=== PATIENT | female | born 1960 | race Caucasian/White ===

== ENCOUNTER → 2021-12-06 | Outpatient (CLI) | payer OTHER, SELFPAY ==
--- NOTE | 2021-12-06 15:37 | VDLE_ITS ---
Reason For Study: Pain LLE RIGHT LEFT CFV is compressible, spontaneous, phasic, GSV is normal. competent and demonstrates normal CFV is compressible, spontaneous, phasic, augmentation. competent, and demonstrates normal Procedure augmentation. This is a venous duplex using B-mode, color FV is compressible, spontaneous, phasic, flow and spectral Doppler. competent and demonstrates normal Exam performed in department. augmentation. A preliminary report was called and/or faxed POP V is compressible, spontaneous, phasic, to Dr. Huertas. competent and demonstrates normal augmentation. T/P Trunk is compressible. PTV is compressible. LT PerV is compressible. Heterogenous, non vascular structure noted Lt Pop Fossa measuring 1.57cm x 1.23cm. VL/Venous Duplex US, Unilateral Interpretation Summary Deep veins of the left lower extremity are patent and compressible segmentally. There is no evidence of left lower extremity deep vein thrombosis. The left great saphenous vein mary jane ears patent and compressible segmentally. Incidental finding, non-vascular structure 1.57 x 1.2 3 cm in popliteal fossa Ordering Physician: Christopher Huertas Referring Physician: Derek Ponce Performed By: Letty Coronel RDCS, RVT
== END | disposition home or self-care (01) ==
PROVIDERS: PCP Family Medicine; Visit Provider Orthopaedic Surgery
DX: M79.662 Pain in left lower leg (principal)
CPT/HCPCS: 93971

== ENCOUNTER → 2023-09-04 | Outpatient (CLI) | payer OTHER, SELFPAY ==
--- NOTE | 2023-09-04 14:06 | RAD_ITS ---
STUDY: X-RAY - ABDOMEN/PELVIS REASON FOR EXAM: Female, 63 years old. CALCULUS OF URETER TECHNIQUE: Single AP view of the abdomen / pelvis. COMPARISON: None. FINDINGS: Status post cholecystectomy. There is an unremarkable bowel gas pattern. The visualized liver, spleen and kidneys are grossly normal in size and morphology. 8 mm calcific opacity in the left side of the pelvis may represent a distal left ureteral stone. Normal soft tissue structures. Mild levoscoliosis lumbar spine. RAD/Abdomen Single View IMPRESSION: Suspect 8 mm distal left ureteral stone. Electronically Signed: Robin Slade MD at 21:27 EDT ,
== END | disposition home or self-care (01) ==
LOC: RAD 14:01
PROVIDERS: PCP Family Medicine; Referring Provider Urology; Visit Provider Urology
DX: N20.1 Calculus of ureter (principal)
CPT/HCPCS: 74018

== ENCOUNTER 2023-09-06 06:57 | Day surgery (SDC) | payer OTHER, SELFPAY ==
[2023-09-06] VITALS (10 sets, daily range): BP systolic 117–168; BP diastolic 60–70; PULSE 71–86; RESP 16; TEMP 36.1–37; O2SAT 94–98; BMI 35.2
--- NOTE | 2023-09-06 | CALC_PTH ---
PATIENT: NOLA SOTELO LOC: [facility] – [place] U#:[id number] AGE/SX: 63/F ROOM: RE09/06/[address]: Dr. Mason Burnett MD : 1960 BED: DIS: 09/06/2023 SPEC #: [id number] RECD: 09/06/23 09:45 STATUS: ÁNGELA REJacoby #: [id number] MANE: 09/06/23 00:[address]: Mason Burnett DEPT: SURGICAL PATHOLOGY RECD BY: Dionna Varela ENTERED: 09/06/23 09:46 SP TYPE: Calculi OTHR DR: Dr. Derek Ponce MD Tissues: CALCULI Procedures: Surgery Specimen Level I HEADER OPERATION: Not noted PRE-OP DIAGNOSIS: Left ureteral stone TISSUE SUBMITTED: Calculi GROSS DIAGNOSIS A fragment of stone, clinically left ureteral calculus (gross only). RENETTA/ 09/06/23 COMMENT The calculus is submitted in its entirety for chemical stone analysis. The results from this study will be reported separately. GROSS DESCRIPTION Received without fixative labeled with the patient's name and designated ureteral calculi. The specimen consists of a fragment of escobar- brown stone measuring 0.3 x 0.1 x 0.1 cm. The entire specimen is submitted for stone analysis. Nallely 09/06/23 CPT: 89580
[2023-09-06] MEDS: Lactated Ringers 1,000 ML 15 ML IV (07:22)
[2023-09-06] MEDS: Cefazolin 2 GM in 0.9% Normal Saline (100mL Bag) 100 ML IV (08:34)
--- NOTE | 2023-09-06 08:36 | DCINST_ITS ---
Discharge Instructions Diet Discharge Diet: No restrictions Activity Discharge Activity: Return to Normal Activity and May Not Drive (while taking narcotic pain medications.) Dressing / Incision Call your doctor if you observe: Fever of 101 or Higher Follow Up Care Please Follow Up With: Mason Burnett MD When: Call [phone] for an appointment Test Results: Test results from this visit will be discussed in further detail at your follow- up appointment, if applicable. Discharge Plan Admission Primary Reason for Your Visit: Left ureteral calculus Attending Provider: Mason Burnett Primary Care Provider: Derek Ponce Discharge Orders/Prescriptions Prescriptions: New ibuprofen 600 mg tablet 600 mg PO Q6H PRN (Reason: fever or pain) Qty: 20 0RF tamsulosin [Flomax] 0.4 mg capsule 0.4 mg PO DAILY Qty: 10 0RF phenazopyridine [Pyridium] 100 mg tablet 100 mg PO TID PRN (Reason: burning) Qty: 15 0RF ciprofloxacin HCl [Cipro] 500 mg tablet 500 mg PO BID Qty: 6 0RF No Action acetaminophen [Tylenol] 325 MG tablet 325 mg PO Q4H PRN (Reason: Pain) tamsulosin 0.4 mg capsule 0.4 mg PO DAILY sulfamethoxazole-trimethoprim 800-160 mg tablet 1 tab PO BID diphenhydramine HCl [Allergy (diphenhydramine)] 25 mg capsule 25 mg PO Q8H PRN (Reason: sleep) clonidine HCl 0.1 mg tablet 0.1 mg PO Q12H PRN PRN (Reason: blood pressure) Referrals / Follow Up: Mason Burnett MD [Med Staff - Active Staff] - Derek Ponce MD [Primary Care Provider] - Disposition Disposition (needs filled in before D/C Order can be placed): Home, Self Care
--- NOTE | 2023-09-06 08:36 | PCM.HP.STD ---
HPI - General General Date of Service: 09/06/23 Chief Complaint: Left ureteral calculus HPI Narrative NOLA SOTELO, is a 63 F who presents with a stone in the left ureter has not been able to pass it would plan to proceed with laser lithotripsy today and stent placement [facility] Medical History (Updated 09/05/23 @ 13:22 by Ashleigh Bone) Arthritis Back pain Bladder disease History of pain when walking History of ulceration Hypertension Non-smoker Post-menopausal Trigger finger of left thumb Wears glasses Home Medications acetaminophen 325 mg tablet (Tylenol) 325 mg PO Q4H PRN Pain 12/12/14 [History Last Taken Unknown] clonidine HCl 0.1 mg tablet 0.1 mg PO Q12H PRN PRN blood pressure 09/05/23 [History Last Taken Unknown] diphenhydramine HCl 25 mg capsule (Allergy (diphenhydramine)) 25 mg PO Q8H PRN sleep 09/05/23 [History Last Taken Unknown] sulfamethoxazole 800 mg-trimethoprim 160 mg tablet 1 tab PO BID 09/05/23 [History Last Taken 09/05/23] tamsulosin 0.4 mg capsule 0.4 mg PO DAILY 09/05/23 [History Last Taken 09/06/23] ciprofloxacin HCl 500 mg tablet (Cipro) 500 mg PO BID #6 tabs 09/06/23 [Rx Last Taken Unknown] ibuprofen 600 mg tablet 600 mg PO Q6H PRN fever or pain #20 tabs 09/06/23 [Rx Last Taken Unknown] phenazopyridine 100 mg tablet (Pyridium) 100 mg PO TID PRN burning #15 tabs 09/06/23 [Rx Last Taken Unknown] tamsulosin 0.4 mg capsule (Flomax) 0.4 mg PO DAILY #10 caps 09/06/23 [Rx Last Taken Unknown] Allergy/AdvReac Type Severity Reaction Status Date / Time triamcinolone acetonide Allergy Rash Verified 09/06/23 07:14 [From Kenalog] Surgical History (Updated 09/05/23 @ 13:22 by Ashleigh Bone) Hx laparoscopic cholecystectomy Hx of colonoscopy Hx of decompressive lumbar laminectomy Hx of tonsillectomy Hx of tubal ligation Social History Smoking Status: Never smoker Vital Signs Vital Signs Vital Signs: 09/06/23 07:15 09/06/23 07:15 Temperature 98.6 F Temperature Source Temporal Pulse Rate 86 Respiratory Rate 16 Respiratory Pattern Normal Blood Pressure 168/60 H Blood Pressure Mean 96 Blood Pressure Source Monitor Blood Pressure Position Sitting Blood Pressure Location Right Arm Pulse Ox 98 Oxygen Delivery Method Room Air Weight Weight: 93 kg Body Mass Index (BMI) 35.2
--- NOTE | 2023-09-06 09:20 | PCM.OPRPT ---
Report of Operation Date of Procedure: 09/06/23 Pre-Operative Diagnosis: Left ureteral calculus Post-Operative Diagnosis: The same Surgery/Procedure Performed:: Cystoscopy, left retrograde pyelogram, interpretation fluoroscopic images, balloon dilation of the left ureter, left ureteroscopy laser of stone and basket out of fragments a left stent Description of Surgical Findings:: This is a patient who presents to the hospital for treatment for an obstructing distal ureter calculi. I discussed with the patient how the surgery would be performed and we reviewed the risks and benefits of the surgery. The risk and benefits include the risk of failure to remove the stone completely and that the patient may need multiple procedures. We discussed the risk of an infection, the risk of bleeding. We discussed the very rare risk of serious complicated injury to the ureter. The patient understands that if the stone is not able to be removed safely that we may abort the procedure and place a stent. After full discussion and all questions address with the patient the consent form was signed the side was marked appropriately and the patient was taken back to the operating room for the procedure. The patient was taken back to the operating room. After induction of anesthesia by the anesthesiology team the patient was placed in dorsolithotomy position. The genitals were prepped and draped in usual sterile fashion. I went into the bladder with a 21 [place] rigid cystourethroscope through the urethra. Upon entering the bladder I inspected the trigone the left and right ureteral orifice and the bladder itself. I then cannulated the ureteral orifice and advanced a 0.038 Glidewire up into the kidney. Then over the Glidewire I advanced a 5 Fr Ureteral catheter and performed a retrograde pyelogram with about 10cc of contrast, to delineate the anatomy and identify the stone location. Then a ureteral balloon dilator was advanced over the wire and the distal ureter was balloon dilated with a 12 Fr x 5cm balloon dilator. After 3 minutes of dilating the ureter the balloon was backloaded off the 0.038 glidewire then the safety wire was left in place. I then placed a second 0.038 Guidewire as a working wire and over the working 0.038 guidewire I went in with the gia rigide 7.5fr ureteroscope. I was able to go inside with the 7.5Fr gia rigid utereroscope and I pulled out the working guidewire and then through the 7.5 fr simirigid ureteroscope I engage the stone in the distal ureter with laser lithotripsy using a 270miron laser fiber with energy setting of 6 Hertz and 0.6 J until the stone was lasered into tiny little pieces and then used a tipless basket and removed all the major fragments. A retrograde pyelogram was performed with 10cc of contrast and no extravasation of contrast or perforation was identified in the ureter there was some mild irritation of the ureter where the stone was located. I then backed out of the ureter left the wire in place and then over the 0.038 guidewire I placed a double coiled pigtail ureteral stent. The ureteral stent was advanced over the 0.038 guidewire under direct fluoroscopic guidance and direct cystoscopic visual guidance, once the stent was in good position I pulled the wire and the stent coiled in the kidney and bladder in good position. I then drained the patient's bladder and the cystoscope was removed and the patient was taken back to the recovery room in good position. The patient was given discharge instructions to call the office for instructions on when to come to the office to have the stent removed. Surgeon: Mason Burnett Type of Anesthesia: General Admit VTE Documentation VTE Present on Admission: No VTE Mechan Device Prophylaxis: SCD's VTE Pharm Prophylaxis ordered?: No
== END 2023-09-06 11:09 | disposition home or self-care (01) ==
LOC: SDC 06:58 → AC 06:59
PROVIDERS: PCP Family Medicine; Referring Provider Urology; Visit Provider Urology
PROC: 0TJ98ZZ Inspection of Ureter, Via Natural or Artificial Opening Endoscopic (ICD-10-PCS; CPT 52352; principal; 2023-09-06 08:45)
DX: N20.1 Calculus of ureter (principal); I10 Essential (primary) hypertension; Z79.899 Other long term (current) drug therapy
CPT/HCPCS: 52344; 00910; 76000; 82360; 88300; J7120; C1769; J2405